=== PATIENT | male | born 1990 | race Caucasian/White ===

== ENCOUNTER 2018-06-05 08:32 | Emergency (ER) | payer OTHER, SELFPAY ==
[2018-06-05 08:57] VITALS: BP 113/75; PULSE 61; RESP 18; TEMP 37; O2SAT 98
--- NOTE | 2018-06-05 09:37 | W.ED.GENAD ---
Discharge Plan Disposition Patient Disposition: HOME Discharge Details Chief Complaint: RespSymp Clinical Impression: Bronchitis, Smoker Primary Care Provider: NONE,NONE ED Provider: Harsha Orozco Home Meds and New Rx's Prescriptions: New azithromycin 250 mg tablet See Label Instructions .ROUTE .COMPLEX Qty: 6 RF: 0 Discharge Instructions Instructions: How to Stop Smoking (ED), Cigarette Smoking and Your Health (GEN), Acute Bronchitis (ED) Additional Instructions: Please stop smoking. Take antibiotic as prescribed. Please contact your primary care physician to arrange follow-up. Return to the ER for any worsening or new concerning symptoms. Stand Alone Forms: Work Release Medical Decision Making 28-year-old male here with persistent cough over the past 3 weeks intimately productive of brown sputum. Saturating well no respiratory distress with clear lung sounds on exam. Patient is a smoker. Patient requesting work note for last night. I do think would be beneficial he takes today and tomorrow off to rest and allow for antibiotics to have an effect. Plan to treat for possible bacterial bronchitis with azithromycin. >6min spent discussing smoking cessation. Patient is motivated. Patient was advised to follow-up with primary care physician. Usual and customary discharge instructions were provided. HPI General Mode of arrival: ambulatory. Date/Time Provider Initiated Documentation: 06/05/18 09:29. Limitations to Documentation: no limitations. Information obtained by: patient. HPI Narrative: 28-year-old male here with chief complaint of cough. Patient notes intermittently productive cough for the past 3 weeks. Cough is persistent. When it is productive he has some brown sputum. Is some mild associated shortness of breath. No chest pain. No swelling. No calf pain or tenderness. No fevers. No rash. Patient does smoke and is trying to quit. He has reduced his smoking habits significantly. Related Data Home Medications Medication Instructions Recorded Confirmed azithromycin See Label Instructions .ROUTE 06/05/18 .COMPLEX #6 tab Previous Rx's Medication Instructions Recorded azithromycin See Label Instructions .ROUTE 06/05/18 .COMPLEX #6 tab Allergies Allergy/AdvReac Type Severity Reaction Status Date / Time codeine Allergy Unverified 11/27/17 07:43 General Stated Complaint: RespSymp QUIRINO: 4 Review of Systems Review of Systems All systems reviewed & are unremarkable except as noted in HPI and below ENT Reports otalgia (left) Cardiovascular Reports dyspnea Respiratory Reports cough, Reports dyspnea and Denies wheezing Gastrointestinal Denies abdominal pain Allergic/Immunologic Denies wheezing [facility] Social History Smoking/Tobacco Use Status: Current every day Exam Const General: cooperative and no acute distress HENMT Head: normocephalic and atraumatic Ears: external ears normal, TM normal on the left, EAC's normal and no periauricular adenopathy Mouth: moist mucous membranes Eyes Conjunctivae: normal conjunctivae Sclera: normal sclerae EOM: EOM intact bilaterally Neck Neck: trachea midline and supple Resp Auscultation: clear to auscultation bilaterally, no rales, no rhonchi and no wheezes Cardio Jugular venous pressure: no JVD Rate: regular rate and not tachycardic Rhythm: regular rhythm GI Palpation: soft, not firm, no guarding, no masses, not rigid and nontender Skin General skin exam: no rashes or lesions noted Neuro General: alert, awake, oriented x3 and tone normal Extrem General: no edema Psych Appearance: grossly normal Mental Status: mental status grossly normal Speech and Movement: speech and movement normal Course Vital Signs Temperature 37.0 C 06/05/18 08:57 Pulse 61 06/05/18 08:57 Respiratory Rate 18 06/05/18 08:57 Blood Pressure 113/75 06/05/18 08:57 Pulse Oximetry 98 06/05/18 08:57 Temperature 37.0 C 06/05/18 08:57 Temperature Source Temporal Artery Scan 06/05/18 08:57 Pulse 61 06/05/18 08:57 Respiratory Rate 18 06/05/18 08:57 Respiratory Effort 06/05/18 09:00 Blood Pressure 113/75 06/05/18 08:57 Blood Pressure Position Sitting 06/05/18 08:57 Pulse Oximetry 98 06/05/18 08:57 Oxygen Delivery Method Room Air 06/05/18 08:57 Oxygen Flow Rate 0 06/05/18 08:57 Pain Level 5 06/05/18 08:57
--- NOTE | 2018-06-05 09:41 | ED.GENADUL_ITS ---
Discharge Plan Disposition Patient Disposition: HOME Discharge Details Chief Complaint: RespSymp Clinical Impression: Bronchitis, Smoker Primary Care Provider: NONE,NONE ED Provider: Harsha Orozco Home Meds and New Rx's Prescriptions: New azithromycin 250 mg tablet See Label Instructions .ROUTE .COMPLEX Qty: 6 RF: 0 Discharge Instructions Instructions: How to Stop Smoking (ED), Cigarette Smoking and Your Health (GEN) , Acute Bronchitis (ED) Additional Instructions: Please stop smoking. Take antibiotic as prescribed. Please contact your primary care physician to arrange follow-up. Return to the ER for any worsening or new concerning symptoms. Stand Alone Forms: Work Release Medical Decision Making 28-year-old male here with persistent cough over the past 3 weeks intimately productive of brown sputum. Saturating well no respiratory distress with clear lung sounds on exam. Patient is a smoker. Patient requesting work note for last night. I do think would be beneficial he takes today and tomorrow off to rest and allow for antibiotics to have an effect. Plan to treat for possible bacterial bronchitis with azithromycin. >6min spent discussing smoking cessation. Patient is motivated. Patient was advised to follow-up with primary care physician. Usual and customary discharge instructions were provided. HPI General Mode of arrival: ambulatory . Date/Time Provider Initiated Documentation: 06/05/18 09:29 . Limitations to Documentation: no limitations . Information obtained by: patient . HPI Narrative: 28-year-old male here with chief complaint of cough. Patient notes intermittently productive cough for the past 3 weeks. Cough is persistent. When it is productive he has some brown sputum. Is some mild associated shortness of breath. No chest pain. No swelling. No calf pain or tenderness. No fevers. No rash. Patient does smoke and is trying to quit. He has reduced his smoking habits significantly. Related Data Home Medications Medication Instructions Recorded Confirmed azithromycin See Label Instructions .ROUTE 06/05/18 .COMPLEX #6 tab Previous Rx's Medication Instructions Recorded azithromycin See Label Instructions .ROUTE 06/05/18 .COMPLEX #6 tab Allergies Allergy/AdvReac Type Severity Reaction Status Date / Time codeine Allergy Unverified 11/27/17 07:43 General Stated Complaint: RespSymp QUIRINO: 4 Review of Systems Review of Systems All systems reviewed & are unremarkable except as noted in HPI and below ENT Reports otalgia (left) Cardiovascular Reports dyspnea Respiratory Reports cough, Reports dyspnea and Denies wheezing Gastrointestinal Denies abdominal pain Allergic/Immunologic Denies wheezing [facility] Social History Smoking/Tobacco Use Status: Current every day Exam Const General: cooperative and no acute distress HENMT Head: normocephalic and atraumatic Ears: external ears normal, TM normal on the left, EAC's normal and no periauricular adenopathy Mouth: moist mucous membranes Eyes Conjunctivae: normal conjunctivae Sclera: normal sclerae EOM: EOM intact bilaterally Neck Neck: trachea midline and supple Resp Auscultation: clear to auscultation bilaterally, no rales, no rhonchi and no wheezes Cardio Jugular venous pressure: no JVD Rate: regular rate and not tachycardic Rhythm: regular rhythm GI Palpation: soft, not firm, no guarding, no masses, not rigid and nontender Skin General skin exam: no rashes or lesions noted Neuro General: alert, awake, oriented x3 and tone normal Extrem General: no edema Psych Appearance: grossly normal Mental Status: mental status grossly normal Speech and Movement: speech and movement normal Course Vital Signs Temperature 37.0 C 06/05/18 08:57 Pulse 61 06/05/18 08:57 Respiratory Rate 18 06/05/18 08:57 Blood Pressure 113/75 06/05/18 08:57 Pulse Oximetry 98 06/05/18 08:57 Temperature 37.0 C 06/05/18 08:57 Temperature Source Temporal Artery Scan 06/05/18 08:57 Pulse 61 06/05/18 08:57 Respiratory Rate 18 06/05/18 08:57 Respiratory Effort 06/05/18 09:00 Blood Pressure 113/75 06/05/18 08:57 Blood Pressure Position Sitting 06/05/18 08:57 Pulse Oximetry 98 06/05/18 08:57 Oxygen Delivery Method Room Air 06/05/18 08:57 Oxygen Flow Rate 0 06/05/18 08:57 Pain Level 5 06/05/18 08:57
[2018-06-05 09:50] VITALS: BP 130/80; PULSE 88; RESP 18; TEMP 36.8; O2SAT 99
== END 2018-06-05 09:51 | disposition home or self-care (01) ==
PROVIDERS: Emergency Provider Student in an Organized Health Care Education/Training Program
DX: J18.9 Pneumonia, unspecified organism (principal); F17.210 Nicotine dependence, cigarettes, uncomplicated
CPT/HCPCS: 99283; 99406

== ENCOUNTER 2019-02-08 21:35 | Emergency (ER) | payer SELFPAY ==
[2019-02-08 21:39] VITALS: BP 137/72; PULSE 72; RESP 16; TEMP 36.7; O2SAT 97
--- NOTE | 2019-02-08 21:54 | W.ED.GENAD ---
Discharge Plan Disposition Patient Disposition: HOME Condition: Stable Discharge Details Chief Complaint: GenMedical Clinical Impression: Epididymitis Primary Care Provider: None,None ED Provider: Benigno Berry Home Meds and New Rx's Prescriptions: New levofloxacin 500 mg tablet 500 mg PO DAILY Qty: 9 RF: 0 Discharge Instructions Instructions: Epididymitis (ED) Additional Instructions: follow up with urology in the next 1-2 weeks, you should have a call with an appointment time if you have severe worsening pain or persistent vomit return to the emergency department you can take 1000mg tylenol and 600mg ibuprofen every 6 hours for pain as needed Stand Alone Forms: Work Release Referrals: Mike Saldana MD [ [facility] STAFF PHYSICIAN] - Medical Decision Making 29 yo male who states he has a hx of epididymitis in the past (about 5 years ago while in [place]) who comes in with slowly worsening left testicle discomfort. Denies fevers, has had some burning with urination. He denies sexual activity with new females and is declining any std testing at this time. He has no swelling of the testicle on exam, carrillo lie, pain only over epidiymis, no pain in testicle, normal cremasteric reflex. Exam consistent with epididymitis. no findings to suggest torsion at this time. Will have him f/u with urology and also return precautions given Differential Diagnosis epididymitis, uti, orchitis HPI General Mode of arrival: ambulatory. Date/Time Provider Initiated Documentation: 02/08/19 21:42. Limitations to Documentation: no limitations. Information obtained by: patient. History of Present Illness 29 year old M presents to the emergency department with the chief complaint of left testicle pain, described as moderate, Quality is described as aching, Patient started experiencing this day(s) (2) and it has been constant. No relieving factors improve symptom(s), No exacerbating factors reported . Patient did receive the following treatments prior to arrival, none Related Data Home Medications Medication Instructions Recorded Confirmed levofloxacin 500 mg PO DAILY #9 tab 02/08/19 Previous Rx's Medication Instructions Recorded levofloxacin 500 mg PO DAILY #9 tab 02/08/19 Allergies Allergy/AdvReac Type Severity Reaction Status Date / Time codeine Allergy Unverified 02/08/19 21:42 General Stated Complaint: GenMedical QUIRINO: 3 Review of Systems Review of Systems All systems reviewed & are unremarkable except as noted in HPI and below Constitutional Denies chills, Denies fever(s) and Denies weakness Cardiovascular Denies chest pain and Denies dyspnea Respiratory Denies cough and Denies dyspnea Gastrointestinal Denies abdominal pain Genitourinary Denies dysuria Neurologic Denies weakness [facility] Social History Smoking/Tobacco Use Status: Current every day Tobacco Type: cigarettes Smoking cigarettes per day: 15 Alcohol Intake: current Alcohol Intake frequency: a few times a week Drug use: Occasionally Substance use type: marijuana Do you feel safe at home: Yes Do you feel safe in your relationship?: Yes Course Vital Signs Temperature 36.7 C 02/08/19 21:39 Pulse 72 02/08/19 21:39 Respiratory Rate 16 02/08/19 21:39 Blood Pressure 137/72 02/08/19 21:39 Pulse Oximetry 97 02/08/19 21:39 Temperature 36.7 C 02/08/19 21:39 Temperature Source Temporal Artery Scan 02/08/19 21:39 Pulse 72 02/08/19 21:39 Respiratory Rate 16 02/08/19 21:39 Respiratory Effort 02/08/19 21:39 Blood Pressure 137/72 02/08/19 21:39 Blood Pressure Position Sitting 02/08/19 21:39 Pulse Oximetry 97 02/08/19 21:39 Oxygen Delivery Method Room Air 02/08/19 21:39 Oxygen Flow Rate 0 02/08/19 21:39 Pain Level 6 02/08/19 21:39 Lab/Test Results Lab/Test Results: 02/08/19 21:53 Urine - Clean Catch Urine Culture - Pending
[2019-02-08] MEDS: Ibuprofen 600 MG TAB PO (21:57)
--- NOTE | 2019-02-08 21:57 | ED.GENADUL_ITS ---
Discharge Plan Disposition Patient Disposition: HOME Condition: Stable Discharge Details Chief Complaint: GenMedical Clinical Impression: Epididymitis Primary Care Provider: None,None ED Provider: Benigno Berry Home Meds and New Rx's Prescriptions: New levofloxacin 500 mg tablet 500 mg PO DAILY Qty: 9 RF: 0 Discharge Instructions Instructions: Epididymitis (ED) Additional Instructions: follow up with urology in the next 1-2 weeks, you should have a call with an appointment time if you have severe worsening pain or persistent vomit return to the emergency department you can take 1000mg tylenol and 600mg ibuprofen every 6 hours for pain as needed Stand Alone Forms: Work Release Referrals: Mike Saldana MD [ [facility] STAFF PHYSICIAN] - Medical Decision Making 29 yo male who states he has a hx of epididymitis in the past (about 5 years ago while in [place]) who comes in with slowly worsening left testicle discomfort. Denies fevers, has had some burning with urination. He denies sexual activity with new females and is declining any std testing at this time. He has no swelling of the testicle on exam, carrillo lie, pain only over epidiymis, no pain in testicle, normal cremasteric reflex. Exam consistent with epididymitis. no findings to suggest torsion at this time. Will have him f/u with urology and also return precautions given Differential Diagnosis epididymitis, uti, orchitis HPI General Mode of arrival: ambulatory . Date/Time Provider Initiated Documentation: 02/08/19 21:42 . Limitations to Documentation: no limitations . Information obtained by: patient . History of Present Illness 29 year old M presents to the emergency department with the chief complaint of left testicle pain, described as moderate, Quality is described as aching, Patient started experiencing this day(s) (2) and it has been constant. No relieving factors improve symptom(s), No exacerbating factors reported . Patient did receive the following treatments prior to arrival, none Related Data Home Medications Medication Instructions Recorded Confirmed levofloxacin 500 mg PO DAILY #9 tab 02/08/19 Previous Rx's Medication Instructions Recorded levofloxacin 500 mg PO DAILY #9 tab 02/08/19 Allergies Allergy/AdvReac Type Severity Reaction Status Date / Time codeine Allergy Unverified 02/08/19 21:42 General Stated Complaint: GenMedical QUIRINO: 3 Review of Systems Review of Systems All systems reviewed & are unremarkable except as noted in HPI and below Constitutional Denies chills, Denies fever(s) and Denies weakness Cardiovascular Denies chest pain and Denies dyspnea Respiratory Denies cough and Denies dyspnea Gastrointestinal Denies abdominal pain Genitourinary Denies dysuria Neurologic Denies weakness [facility] Social History Smoking/Tobacco Use Status: Current every day Tobacco Type: cigarettes Smoking cigarettes per day: 15 Alcohol Intake: current Alcohol Intake frequency: a few times a week Drug use: Occasionally Substance use type: marijuana Do you feel safe at home: Yes Do you feel safe in your relationship?: Yes Course Vital Signs Temperature 36.7 C 02/08/19 21:39 Pulse 72 02/08/19 21:39 Respiratory Rate 16 02/08/19 21:39 Blood Pressure 137/72 02/08/19 21:39 Pulse Oximetry 97 02/08/19 21:39 Temperature 36.7 C 02/08/19 21:39 Temperature Source Temporal Artery Scan 02/08/19 21:39 Pulse 72 02/08/19 21:39 Respiratory Rate 16 02/08/19 21:39 Respiratory Effort 02/08/19 21:39 Blood Pressure 137/72 02/08/19 21:39 Blood Pressure Position Sitting 02/08/19 21:39 Pulse Oximetry 97 02/08/19 21:39 Oxygen Delivery Method Room Air 02/08/19 21:39 Oxygen Flow Rate 0 02/08/19 21:39 Pain Level 6 02/08/19 21:39 Lab/Test Results Lab/Test Results: 02/08/19 21:53 Urine - Clean Catch Urine Culture - Pending
[2019-02-08] MEDS: levoFLOXacin 500 MG TAB PO (21:58)
[2019-02-08 22:05] LABS: Bilirubin Negative (Negative); Blood Negative (Negative); Clarity Clear (Clear); Glucose Negative (Negative); Ketones Negative (Negative); Leukocyte Esterase Negative (Negative); Nitrite Negative (Negative); Specific Gravity 1.025 (1.005-1.025)
== END 2019-02-08 22:03 | disposition home or self-care (01) ==
PROVIDERS: Emergency Provider Emergency Medicine
DX: N45.1 Epididymitis (principal)
CPT/HCPCS: 87077; 99283; 81003; 87086; 99281

== ENCOUNTER 2019-03-29 22:09 | Emergency (ER) | payer SELFPAY ==
[2019-03-29 22:11] VITALS: BP 133/77; PULSE 63; RESP 18; TEMP 36.8; O2SAT 99
--- NOTE | 2019-03-29 22:13 | ED.GENADUL_ITS ---
Discharge Plan Disposition Patient Disposition: HOME Condition: Stable Discharge Details Chief Complaint: EyeProblem Clinical Impression: Abrasion of sclera of left eye, Corneal rust ring of left eye Primary Care Provider: None,None ED Provider: Angeles Scott Home Meds and New Rx's Prescriptions: Continued acetaminophen [Tylenol] 325 mg Tablet 650 mg PO PRN PRNRF: 0 ibuprofen 200 mg Tablet 400 mg PO Q6H PRNRF: 0 Discharge Instructions Instructions: Corneal Abrasion (ED) Additional Instructions: You have an abrasion noted on your sclera (which is the white part of your eye) under your lower eyelid. Use the erythromycin ointment in your left eye 4 times daily for the next 5 days. You were also noted to have a rust ring on the cornea which is the clear front part of your eye which may be due to an embedded foreign body. Call [facility] in [facility] at [phone] tomorrow morning to schedule a follow-up appointment for reevaluation tomorrow. Return immediately to the emergency department if you develop any worsening or concerning symptoms. Stand Alone Forms: Work Release Discharge Data Discharge Date/Time-TO BE ENTERED AT DEPARTURE: 03/29/19 22:59 Discharge Physician: Angeles Scott Medical Decision Making 29-year-old male presents with left eye irritation, foreign body sensation and blurry vision for the past few weeks after possible injury with foreign body at work including metal, steel or dirt. Right eye 20/20, left eye 20/30. Unsure of tetanus status. There is a scleral abrasion noted around 6:00 of left eye, and a corneal rust ring without obvious foreign body noted between 9 and 10:00. Suspect due to the injury occurring a few weeks ago, there may be a deeply embedded foreign body. Exam was done with fluorescein staining, Joseph lamp and slit lamp exam. There is no obvious foreign body with upper and lower eyelid eversion. Boostrix given. Patient was given erythromycin ointment here as well as tube for home. He was advised to call [facility] tomorrow morning for further evaluation and possible intervention. My note will be faxed to [facility] in the a.m. for evaluation tomorrow. HPI General Date/Time Provider Initiated Documentation: 03/29/19 22:12 . Limitations to Documentation: no limitations . Information obtained by: patient . HPI Narrative: Patient is a 29-year-old male presents with left eye irritation, foreign body sensation and blurry vision for the past few weeks after a possible eye injury at work. 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 He states he was at work a few weeks ago where he was wearing side protective glasses and felt like he got something in his eye. He states he is stubborn and did not seek any medical treatment at that time. He presents tonight due to pe rsistent irritation and foreign body sensation. He feels like there is something in the lower part of his eye that continually rubs from his lower eyelid. He is unsure of his tetanus status. He does not wear contacts. Related Data Home Medications Medication Instructions Recorded Confirmed acetaminophen [Tylenol] 650 mg PO PRN PRN 03/29/19 03/29/19 ibuprofen 400 mg PO Q6H PRN 03/29/19 03/29/19 Allergies Allergy/AdvReac Type Severity Reaction Status Date / Time codeine Allergy Unverified 03/29/19 22:13 General Stated Complaint: EyeProblem QUIRINO: 4 Review of Systems Review of Systems All systems reviewed & are unremarkable except as noted in HPI and below Constitutional Reports as per HPI, Denies chills and Denies fever(s) Eyes Denies blurry vision ENT Denies dizziness, Denies sore throat and Denies throat swelling Cardiovascular Denies chest pain and Denies dyspnea Respiratory Denies cough and Denies dyspnea Gastrointestinal Denies abdominal pain, Denies diarrhea and Denies vomiting Genitourinary Denies hematuria and Denies dysuria Musculoskeletal Denies back pain and Denies numbness Integumentary/Breasts Denies lesions and Denies rash Neurologic Denies dizziness, Denies focal weakness and Denies numbness Allergic/Immunologic Denies throat swelling PFS Medical History No significant past medical history (Acute) Surgical History History of appendectomy (Chronic) History of tonsillectomy and adenoidectomy (Acute) Social History Smoking/Tobacco Use Status: Current every day Tobacco Type: cigarettes Years smoked: 15 Alcohol Intake: current Alcohol Intake frequency: a few times a week Drug use: Daily Substance use type: marijuana Do you feel safe at home: Yes Do you feel safe in your relationship?: Yes Exam Const General: cooperative, healthy appearing and no acute distress HENMT Head: normal to inspection Ears: hearing grossly normal bilaterally and external ears normal Mouth: oral mucosae normal Eyes General: appearance normal, both eyes and all related structures Periorbital: periorbital findings normal Eyelids: eyelids normal Pupils: PERRL EOM: EOM intact bilaterally Other: Rust ring noted between 9 and 10:00 but no obvious superficial foreign body noted but there does appear to be a brown speck within the center of the rust ring consistent with possibly deeper embedded foreign body. Scleral abrasion noted at 6 o'clock. No other obvious foreign body noted with upper and lower eyelid eversion. Exam done with fluorescein staining, Joseph lamp and slit lamp exam. Neck Neck: normal visual inspection Resp Effort & Inspection: normal respiratory effort and able to speak in complete sentences Cardio Rate: regular rate Skin General skin exam: no rashes or lesions noted Neuro General: alert, awake and oriented x3 Motor: muscle tone normal throughout Extrem General: normal to inspection and full ROM Psych Appearance: grossly normal Affect: normal affect Course Vital Signs Temperature 98.2 F 03/29/19 22:11 Pulse 63 03/29/19 22:11 Respiratory Rate 18 03/29/19 22:11 Blood Pressure 133/77 03/29/19 22:11 Pulse Oximetry 99 03/29/19 22:11 Temperature 98.2 F 03/29/19 22:11 Pulse 63 03/29/19 22:11 Respiratory Rate 18 03/29/19 22:11 Blood Pressure 133/77 03/29/19 22:11 Blood Pressure Position Sitting 03/29/19 22:11 Pulse Oximetry 99 03/29/19 22:11 Oxygen Delivery Method Room Air 03/29/19 22:11 Oxygen Flow Rate 0 03/29/19 22:11 Pain Level 6 03/29/19 22:11
[2019-03-29] MEDS: Tetracaine 0.5% 4 ML BTL (22:20)
[2019-03-29] MEDS: Fluorescein STRIPS 100/BOX 1 MG (22:20)
[2019-03-29] MEDS: Erythromycin Ophth Oint 3.5 GM TUBE OU (22:46)
--- NOTE | 2019-03-29 23:10 | NUR.NOTE ---
Nursing Note: faxed note and referal to [facility]
== END 2019-03-29 22:59 | disposition home or self-care (01) ==
PROVIDERS: Emergency Provider Physician Assistant
DX: S05.02XA Injury of conjunctiva and corneal abrasion without foreign body, left eye, initial encounter (principal); T15.02XA Foreign body in cornea, left eye, initial encounter; Y99.0 Civilian activity done for income or pay
CPT/HCPCS: 90471; 99284; 99283

== ENCOUNTER 2019-06-16 11:29 | Emergency (ER) | payer SELFPAY ==
[2019-06-16 11:42] VITALS: BP 132/69; PULSE 64; RESP 18; TEMP 36.7; O2SAT 99
[2019-06-16 13:06] LABS: Mono Screening Negative (Negative)
--- NOTE | 2019-06-16 16:37 | ED.GENADUL_ITS ---
Discharge Plan Disposition Patient Disposition: HOME Condition: Good Discharge Details Chief Complaint: Sorethroat Clinical Impression: Hx of viral pharyngitis Primary Care Provider: Maria Esther Gamble ED Provider: Leslee Gamboa Home Meds and New Rx's Prescriptions: New benzonatate [Tessalon Perles] 100 mg capsule 100 mg PO TID PRN (Reason: cough) Qty: 10 RF: 0 albuterol sulfate [Proventil HFA] 90 mcg/actuation HFA aerosol inhaler 2 puff IH Q6H PRN (Reason: shortness of breath or wheezing) Qty: 8 RF: 0 Discharge Instructions Instructions: Pharyngitis (ED) Additional Instructions: Drink plenty of fluids. Increase vitamin C. Rest activities as tolerated. Use medication as prescribed as discussed Recheck with primary care doctor if not improving the next 3 to 5 days.@Return for any worsening, concerns or alarming symptoms sooner if needed Stand Alone Forms: Work Release Discharge Data Discharge Date/Time-TO BE ENTERED AT DEPARTURE: 06/16/19 14:20 Medical Decision Making 29-year-old patient presents for complaints of sore throat accompanied by a par tner who has been sick all week with similar symptoms. Patient ultimately has upper respiratory symptoms associated with sore throat specifically nasal congestion and cough. No measured fevers however does feel subjectively chilled and feverish. Mild body aches associated without bowel changes. No obvious voice change. On exam has pharyngeal erythema associated by cervical lymphadenopathy and clear breath sounds. No complaints of abdominal pain. Influenza, strep and mono testing ordered. All are negative today. Likely patient is experiencing a viral syndrome, conservative treatments were discussed. Patient agrees with plan of care. The patient was stable and requested discharge. Prior to discharge, my usual and customary return precautions were reviewed with the patient - this included follow-up instructions and reasons to return to the Emergency Department if conditions worsens, does not improve as expected, or other new concerns arise. HPI General Date/Time Provider Initiated Documentation: 06/16/19 11:51 . HPI Narrative: This is a 29-year-old patient presents for complaints of sore throat for the last 4 days. Patient reports mild nasal congestion and cough. Patient admits to being a smoker. Reports cough is persistent with mild production. Denies m easured fever however does report subjective fevers. Mild chills. Patient's partner has been ill with very similar symptoms of sore throat throughout the week. Patient denies nausea, vomiting or diarrhea. No significant change in the bowels. Patient denies difficulty breathing or shortness of breath or wheezing. Patient denies voice change or trismus Related Data Home Medications Medication Instructions Recorded Confirmed albuterol sulfate [Proventil HFA] 2 puff IH Q6H PRN #8 gm 06/16/19 benzonatate [Tessalon Perles] 100 mg PO TID PRN #10 cap 06/16/19 Previous Rx's Medication Instructions Recorded albuterol sulfate [Proventil HFA] 2 puff IH Q6H PRN #8 gm 06/16/19 benzonatate [Tessalon Perles] 100 mg PO TID PRN #10 cap 06/16/19 Allergies Allergy/AdvReac Type Severity Reaction Status Date / Time codeine Allergy Unverified 06/16/19 11:47 General Stated Complaint: Sorethroat QUIRINO: 4 Review of Systems All systems reviewed & are unremarkable except as noted in HPI and below Constitutional Constitutional: Reports chills, Denies fatigue, Reports fever(s), Denies headache(s) and Denies malaise ENT Ears, Nose, Mouth, and Throat: Denies otalgia, Denies headache(s), Denies mouth pain, Reports nasal discharge, Reports post nasal drip and Reports sore throat Cardiovascular Cardiovascular: Denies chest pain Respiratory Respiratory: Reports cough and Denies pain on inspiration Gastrointestinal Gastrointestinal: Denies diarrhea, Denies nausea and Denies vomiting Neurologic Neurologic: Denies headache(s) Endocrine Endocrine: Denies fatigue [facility], LAT[facility] Medical History No significant past medical history (Acute) Surgical History History of appendectomy (Chronic) History of tonsillectomy and adenoidectomy (Acute) Social History Smoking/Tobacco Use Status: Current every day Tobacco Type: cigarettes Years smoked: 15 Alcohol Intake: current Alcohol Intake frequency: a few times a week Drug use: Daily Substance use type: marijuana Do you feel safe at home: Yes Do you feel safe in your relationship?: Yes Exam Narrative Exam Narrative: CONST: Healthy appearing patient, in no acute distress. Well hydrated. Alert and alert. HENMT: Head nomocephalic, normal to inspection. Atraumatic. Hearing grossly normal. External ear canal no erythema or swelling. TM normal bilaterally. Nose normal to inspection. No rhinnorhea. Normal facial exam. Oral mucosa normal. Tounge normal. Dentition normal. Erythema posterior oropharynx. Uvula midline. EYES: General normal appearance. Alignment normal. Eyelids normal. Conjunctiva normal. Sclera normal. PERRL. NECK: Normal visual inspection. FROM. Cervical lymphadenopathy present. Trachea midline. No Midline tenderness. CHEST: Normal insepection of the chest. RESP: Normal respiratory effort. Speaking full sentences. No cough. No wheezing. No retractions. Clear to auscaltation. Breath sound equal and present bilaterally. CARDIO: No JVD. Normal PMI. Regular Rate. Regular Rhythm. Normal peripheral pulses. Course Vital Signs Vital signs: Vital Signs Temperature 36.7 C 06/16/19 11:42 Pulse 64 06/16/19 11:42 Respiratory Rate 18 06/16/19 11:42 Blood Pressure 132/69 06/16/19 11:42 Pulse Oximetry 99 06/16/19 11:42 Temperature 36.7 C 06/16/19 11:42 Temperature Source Skin 06/16/19 11:42 Pulse 64 06/16/19 11:42 Respiratory Rate 18 06/16/19 11:42 Respiratory Effort 06/16/19 11:47 Blood Pressure 132/69 06/16/19 11:42 Blood Pressure Position Sitting 06/16/19 11:42 Pulse Oximetry 99 06/16/19 11:42 Oxygen Delivery Method Room Air 06/16/19 11:42 Oxygen Flow Rate 0 06/16/19 11:42 Pain Level 7 06/16/19 14:05 Lab/Test Results Lab/Test Results: 06/16/19 11:45 Nasopharynx Influenza Types A,B Antigen - Final 06/16/19 11:50 Pharynx Streptococcus Screen (NOHELIA) - Pending Laboratory Tests Range/Units 06/16/19 12:49 Monoscreen (Negative) Negative POC Strep Test-KARTIK(Rapid) Start: 06/16/19 11:50 Freq: Status: Discharge Protocol: Document 06/16/19 12:02 AW (Rec: 06/16/19 12:02 AW [id number]) Strep test-KARTIK(Rapid)-POC POC-Strep test-KARTIK (Rapid) Negative POC-Strep test-KARTIK (Rapid) Negative
== END 2019-06-16 14:20 | disposition home or self-care (01) ==
PROVIDERS: Emergency Provider Physician Assistant; PCP Physician Assistant Medical
DX: J02.9 Acute pharyngitis, unspecified (principal); R05 Cough; M79.10 Myalgia, unspecified site
CPT/HCPCS: 36415; 87449; 87880; 99282; 86308; 87081

== ENCOUNTER 2023-03-12 05:15 | Emergency (ER) | payer MEDICAID, SELFPAY ==
--- NOTE | 2023-03-12 05:15 | DI.RAD_ITS ---
Exam(s) XR FOOT LT COMPLETE EXAM: XR FOOT LT COMPLETE CLINICAL HISTORY: Dropped a large piece of asphalt on it, bruised. TECHNIQUE: 2D digital imaging was performed. Three views. COMPARISON: No exams were available for comparison FINDINGS: BONES: No acute fracture is present. No bony destructive lesion is seen. JOINTS: No dislocation present. SOFT TISSUE: Normal. IMPRESSION: Unremarkable radiographs of the left foot. DATA REPOSITORY: RADIATION DOSE DELIVERED:
[2023-03-12 05:18] VITALS: BP 137/81; PULSE 72; RESP 19; O2SAT 98
--- NOTE | 2023-03-12 05:53 | ED.GENADUL_ITS ---
Discharge Plan Disposition Patient Disposition: Home Condition: Improving Discharge Details Clinical Impression: Contusion of foot Primary Care Provider: Maria Esther Gamble ED Provider: Baltazar Wood Instructions Instructions: Foot Contusion (ED) Stand Alone Forms: Work Release Discharge Data Discharge Date/Time-TO BE ENTERED AT DEPARTURE: 03/12/23 06:26 Discharge Physician: Baltazar Wood Medical Decision Making Patient with left foot contusion who had an x-ray that was reviewed by me and read by the radiologist has no fracture. Differential diagnosis includes fracture or contusion at this time is a contusion the patient will be discharged home with NSAIDs crutches and follow-up Medical Records Medical records reviewed: Yes I reviewed the patient's medical records. HPI General Date/Time Provider Initiated Documentation: 03/12/23 05:53 . HPI Narrative: Patient presents to the emergency department after he dropped a object on his left foot complaining of tenderness to the foot Related Data Allergies Allergy/AdvReac Type Severity Reaction Status Date / Time codeine Allergy Unverified 06/16/19 11:47 General Stated Complaint: Orthopedic QUIRINO: 4 Review of Systems Narrative: Review of Systems: Constitutional: No fevers, chills, sweats Eye: No recent visual problems ENT: No ear pain, nasal congestion, sore throat Respiratory: No shortness of breath, cough Cardiovascular: No Chest pain, palpitations, syncope Gastrointestinal: No nausea, vomiting, diarrhea Genitourinary: No hematuria Abisai/Lymph: Negative for bruising tendency, swollen lymph glands Endocrine: Negative for excessive thirst, excessive hunger Musculoskeletal: No back pain, neck pain, joint pain, muscle pain, decreased range of motion Integumentary: No rash, pruritus, abrasions Neurologic: Alert & oriented X 4 Psychiatric: No anxiety, depression PFSH All Active Problems Contusion of foot (Acute) Medical History No significant past medical history Surgical History History of appendectomy History of tonsillectomy and adenoidectomy Social History Smoking/Tobacco Use Status: Current every day Tobacco Type: cigarettes Years smoked: 15 Smoking risk assessment performed?: Yes Alcohol Intake: former Drug use: Daily Substance use type: marijuana Housing: apartment Do you feel safe at home: Yes Do you feel safe in your relationship?: Yes Exam Narrative Exam Narrative: Exam; vitals signs as reported above normal Constitutional; In no acute distress, afebrile General: cooperative, healthy appearing, comfortable and no acute distress HEENT: Head: normal to inspection, no palpable skull fracture and normocephalic atraumatic Eyes: : appearance normal, both eyes and all related structures EOM intact bilaterally Pupils: PERRL : conjunctiva normal Direct ophthalmoscopy: normal light reflex, normal conjunctiva, normal visual acuity Ears: Normal TM, normal external canal Neck no JVD, supple non tender Neck: normal visual inspection, full ROM and no lymphadenopathy Chest: normal inspection of the chest Respiratory : normal respiratory effort and able to speak in complete sentences no wheezing no rales Cardio Rate: regular rate, rhythm: regular rhythm normal heart sounds S1 and S2 no murmurs, gallops, or rubs GI : normal to inspection, normal bowel sounds, soft, non tender, non distended, no organomegaly Back/Spine/ no CVA tenderness Thoracic/Lumbar Spine: no tenderness or deformities Skin no rashes or lesions Neuro: patient alert and no meningeal signs, Cranial Nerves: CN's II-XI intact bilaterally, Cognition: normal cognition, Speech: speech normal, Gait: normal gait, Depp tendon reflexes normal 2+ muscle strength 5/5 bilaterally Extremities, no edema, full range of motion, normal strength tenderness to the lower dorsal aspect of the left foot Course Vital Signs Vital signs: Vital Signs Pulse 72 03/12/23 05:18 Respiratory Rate 03/12/23 05:18 Blood Pressure 137/81 03/12/23 05:18 Pulse Oximetry 98 03/12/23 05:18 Pulse 72 03/12/23 05:18 Respiratory Rate 19 03/12/23 05:18 Respiratory Effort Normal, Non-Labored 03/12/23 05:22 Blood Pressure 137/81 03/12/23 05:18 Blood Pressure Position Sitting 03/12/23 05:18 Pulse Oximetry 98 03/12/23 05:18 Oxygen Delivery Method Room Air 03/12/23 05:18 Oxygen Flow Rate 0 03/12/23 05:18 Pain Level 8 03/12/23 05:22
--- NOTE | 2023-03-12 05:53 | DI.VRAD_ITS ---
PROCEDURE INFORMATION: Exam: XR Left Foot Exam date and time: 03/12/2023 5:43 AM Age: 33 years old Clinical indication: Injury or trauma; Other: Asphalt fell on foot; Work related; Crushing; Left; Injury date: 03/11/23; Injury details: Dropped a large piece of asphalt on it, bruised, swollen TECHNIQUE: Imaging protocol: Radiologic exam of the left foot. Views: 3 or more views. COMPARISON: No relevant prior studies available. FINDINGS: Bones/joints: Normal. Soft tissues: Normal. IMPRESSION: No acute findings. Dictated and Authenticated by: Benigno Mccarthy MD. Ordering:NEY Ledesma MD
[2023-03-12 06:25] VITALS: BP 115/70; PULSE 67; RESP 16; O2SAT 98
== END 2023-03-12 06:26 | disposition home or self-care (01) ==
PROVIDERS: Emergency Provider Emergency Medicine Emergency Medical Services; PCP Physician Assistant Medical
DX: S90.32XA Contusion of left foot, initial encounter (principal); X58.XXXA Exposure to other specified factors, initial encounter
CPT/HCPCS: 99283; 73630

== ENCOUNTER 2025-03-21 13:38 | Emergency (ER) | payer MEDICAID, SELFPAY ==
[2025-03-21 13:46] VITALS: BP 133/84; PULSE 70; RESP 17; TEMP 36.8; O2SAT 98
[2025-03-21 13:51] VITALS: BP 133/84; PULSE 70; RESP 17; TEMP 36.8; O2SAT 98
--- NOTE | 2025-03-21 14:01 | ED.GENADUL_ITS ---
Discharge Plan Disposition Patient Disposition: Home Condition: Stable Discharge Details Clinical Impression: Nausea vomiting and diarrhea Primary Care Provider: Maria Esther Gamble ED Provider: Benigno Berry Home Meds and New Rx's Prescriptions: New ondansetron 4 mg tablet,disintegrating 4 mg PO Q8H PRN (Reason: nausea and vomiting) Qty: 30 0RF Discharge Instructions Additional Instructions: Your lab work did not show any concerning findings at this time. If you are not improving within 3 to 5 days follow-up with your primary care provider or express care. If you feel significantly more ill, have persistent vomiting despite nausea medication or severe abdominal pain return to the emergency department for patient. Stand Alone Forms: Work Release HPI General Mode of arrival: ambulatory . Date/Time Provider Initiated Documentation: 03/21/25 13:39 . Limitations to Documentation: no limitations . Information obtained by: patient . History of Present Illness 35 year old M presents to the emergency department with the chief complaint of n/v/d, described as moderate, Patient started experiencing this hour(s) (8) and it has been intermittent. No relieving factors improve symptom(s), No exacerbating factors reported . Patient notes denies chest pain and fever/chills. Patient did receive the following treatments prior to arrival, none Related Data Home Medications ?Medication ?Instructions ?Recorded ?Confirmed ondansetron 4 mg disintegrating 4 mg PO Q8H PRN nausea and 03/21/25 tablet vomiting #30 tabs Previous Rx's ?Medication ?Instructions ?Recorded ondansetron 4 mg disintegrating 4 mg PO Q8H PRN nausea and 03/21/25 tablet vomiting #30 tabs Allergies Allergy/AdvReac Type Severity Reaction Status Date / Time codeine Allergy Hives Unverified 03/21/25 13:51 General Stated Complaint: Nausea/Vomit/Diar QUIRINO: 3 Review of Systems All systems reviewed & are unremarkable except as noted in HPI and below Constitutional Constitutional: Denies chills, Denies fever(s) and Denies weakness Cardiovascular Cardiovascular: Denies chest pain and Denies dyspnea Respiratory Respiratory: Denies cough and Denies dyspnea Gastrointestinal Gastrointestinal: Denies abdominal pain, Reports diarrhea, Reports nausea and Reports vomiting Neurologic Neurologic: Denies weakness Exam Const General: no acute distress Orientation: alert HENMT Head: normal to inspection Ears: external ears normal General nose exam: external nose normal Mouth: moist mucous membranes Eyes General: appearance normal, both eyes and all related structures Neck Neck: normal visual inspection Resp Effort & Inspection: normal respiratory effort and able to speak in complete sentences Cardio Rate: regular rate GI Palpation: soft, not firm, no guarding and tender Skin General skin exam: no rashes or lesions noted Neuro General: patient alert and patient oriented x3 Extrem General: normal to inspection Psych Mental Status: mental status grossly normal Course Vital Signs Vital signs: Vital Signs Temperature 36.8 C 03/21/25 13:46 Pulse 70 03/21/25 13:46 Respiratory Rate 17 03/21/25 13:46 Blood Pressure 133/84 03/21/25 13:46 Pulse Oximetry 98 03/21/25 13:46 Temperature 36.8 C 03/21/25 13:51 Temperature Source Oral 03/21/25 13:51 Pulse 70 03/21/25 13:51 Respiratory Rate 17 03/21/25 13:51 Blood Pressure 133/84 03/21/25 13:51 Blood Pressure Position Sitting 03/21/25 13:51 Pulse Oximetry 98 03/21/25 13:51 Oxygen Delivery Method Room Air 03/21/25 13:51 Oxygen Flow Rate 0 03/21/25 13:46 Pain Level 4 03/21/25 13:46 Medical Decision Making 35-year-old male who denies any chronic problems comes in with chief complaint of nausea vomiting diarrhea starting this morning. He says he felt well yesterday denies any recent travel, antibiotic use or marijuana. He denies any severe abdominal pain, chest pain, difficulty breathing. He is well-appearing on exam. He has no abdominal tenderness on exam. I suspect illness or gastroenteritis, will check a CBC and CMP and treat his symptoms with IV fluids and Zofran and reassess. Patient feeling better, labs unremarkable. He still has no abdominal tenderness. Given reassuring workup I feel he stable for discharge and follow- up with his PCP, return precautions given. Differential Diagnosis Differential Diagnosis: gastroeneteritis, food illness [facility] All Active Problems (Updated 03/21/25 @ 14:52 by Benigno Berry MD) Nausea vomiting and diarrhea (Acute) Medical History (Updated 03/21/25 @ 14:52 by Benigno Berry MD) No significant past medical history Surgical History History of tonsillectomy and adenoidectomy History of appendectomy Social History Smoking/Tobacco Use Status: Current every day Tobacco Type: cigarettes Years smoked: 15 Smoking risk assessment performed?: Yes Alcohol Intake: former Drug use: Daily Substance use type: marijuana Housing: apartment Do you feel safe at home: Yes Do you feel safe in your relationship?: Yes
[2025-03-21 14:16] LABS: Abs Immature Grans 0.03 10^3/uL (0.0-0.06); HCT 44.5 % (40.0-50.0); HGB 14.9 g/dL (13.5-17.5); Immature Grans % 0.4 %; MCH 28.9 pg (27.0-33.0); MCHC 33.5 % (32.0-36.0); MCV 86 fL (80-95); MPV 9.2 fL (8.0-11.0); Platelet Count 368 10^3/uL (130-400); RBC 5.15 10^6/uL (4.36-5.78); RDW 13.3 % (11.8-14.1); RDW-SD 42.5 fL; WBC 8.54 10^3/uL (4.4-10.8)
[2025-03-21] MEDS: Normal Saline 1,000 ML 1000 ML IV (14:17)
[2025-03-21] MEDS: Ondansetron 4 MG/2 ML VIAL IVP (14:18)
[2025-03-21 14:31] LABS: Calcium 8.9 mg/dL (8.5-10.1); Glucose 111 mg/dL (74-106)
[2025-03-21 14:32] LABS: ALT 18 U/L (16-63); AST 18 U/L (15-37); Albumin 3.7 g/dL (3.4-5.0); Alkaline Phosphatase 51 U/L (46-116); Anion Gap 8.7 mmol/L (3-11); BUN 10 mg/dL (7-18); Bilirubin, Total 0.6 mg/dL (0.2-1.0); CO2 28.3 mmol/L (21.0-32.0); Chloride 105 mmol/L (98-107); Estimated GFR 113.51 (mL/min/1.73m2); Magnesium 1.9 mg/dL (1.8-2.4); Potassium 4.4 mmol/L (3.5-5.1); Sodium 142 mmol/L (136-145); Total Protein 7.7 g/dL (6.4-8.2)
== END 2025-03-21 15:02 | disposition home or self-care (01) ==
PROVIDERS: Emergency Provider Emergency Medicine; PCP Physician Assistant Medical
DX: R11.2 Nausea with vomiting, unspecified (principal); R19.7 Diarrhea, unspecified
CPT/HCPCS: 80053; 96361; 96374; 99284; 83735; 85025; 99283; J2405

== ENCOUNTER 2025-04-11 18:33 | Emergency (ER) | payer MEDICAID, SELFPAY ==
[2025-04-11 18:36] VITALS: BP 146/85; PULSE 69; RESP 18; TEMP 37.1; O2SAT 98
[2025-04-11 18:38] VITALS: BP 146/85; PULSE 69; RESP 18; TEMP 37.1; O2SAT 98
--- NOTE | 2025-04-11 19:04 | ED.GENADUL_ITS ---
Discharge Plan Disposition Patient Disposition: Home Condition: Stable Discharge Details Clinical Impression: Migraine syndrome Primary Care Provider: Maria Esther Gamble ED Provider: Leland Moore Home Meds and New Rx's Prescriptions: No Action ondansetron 4 mg tablet,disintegrating 4 mg PO Q8H PRN (Reason: nausea and vomiting) Qty: 30 0RF Discharge Instructions Instructions: Headache, Adult ED Additional Instructions: You were seen in the emergency department for your headache for the past 3 days, you state this is just a headache, we are going to perform a COVID/flu test which you can obtain from any pharmacy, you received migraine medications, I suggest you continue taking Tylenol and ibuprofen and stay well-hydrated. Please return for any emergent concerns. Stand Alone Forms: Work Release Referrals: Maria Esther Gamble [Primary Care Provider, Medicine] Discharge Data Discharge Date/Time-TO BE ENTERED AT DEPARTURE: 04/11/25 19:42 HPI General Date/Time Provider Initiated Documentation: 04/11/25 18:40 . HPI Narrative: 35 year-old male presents to ED today by POV/ambulating with a chief complaint of headache with onset 3 days. Quality described as generalized headache, no radiation to fever, neck stiffness, trauma, URI, severe body aches, abdominal pain, shortness of breath, chest pain. Severity is described as moderate. Palliating factors include nothing specific attempted. Provoking factors include nothing specific. Patient not anticoagulated. Related Data Home Medications ?Medication ?Instructions ?Recorded ?Confirmed ondansetron 4 mg disintegrating 4 mg PO Q8H PRN nausea and 03/21/25 04/11/25 tablet vomiting #30 tabs Previous Rx's ?Medication ?Instructions ?Recorded ondansetron 4 mg disintegrating 4 mg PO Q8H PRN nausea and 03/21/25 tablet vomiting #30 tabs Allergies Allergy/AdvReac Type Severity Reaction Status Date / Time codeine Allergy Hives Unverified 04/11/25 18:38 General Stated Complaint: Headache QUIRINO: 3 Review of Systems All systems reviewed & are unremarkable except as noted in HPI and below Exam Narrative Exam Narrative: GENERAL APPEARANCE: Well-nourished, non-toxic, awake and alert, atraumatic, no acute distress. SKIN: Warm, pink, dry, intact, without rashes/lesions/ulcerations. HEAD: Normocephalic, atraumatic, normal hair distribution for gender/age. EYES: Normal conjunctiva, no exudates on lids/lashes. ENT: Nares patent, no circumoral cyanosis, no facial swelling NECK: Supple, trachea midline, painless cervical ROM. LUNGS/CHEST: Non-labored respirations, normal A/P diameter, symmetrical expansion, no chest wall deformity HEART (CV/PV): No peripheral edema, no JVD. ABDOMEN: Soft, non-distended, no guarding. MSK: Normal ROM, no swelling/deformity to bilateral UEs or LEs, moving all extremities without weakness, no cyanosis, spine midline without tenderness, normal curvature. NEURO: Mental Status AAOx4 - alert to person, place, time, events No facial droop, no forehead involvement. Motor: No focal weakness - strength 5/5 in bilateral UEs and LEs, proximal and distal, symmetric. Sensory: sensation intact to light touch globally. Gait normal: patient ambulated without ataxia into ED room. PSYCH: euthymic, cooperative, pleasant, appropriate speech Course Vital Signs Vital signs: Vital Signs Temperature 37.1 C 04/11/25 18:36 Pulse 69 04/11/25 18:36 Respiratory Rate 18 04/11/25 18:36 Blood Pressure 146/85 H 04/11/25 18:36 Pulse Oximetry 98 04/11/25 18:36 Temperature 37.1 C 04/11/25 18:38 Pulse 69 04/11/25 18:38 Respiratory Rate 18 04/11/25 18:38 Blood Pressure 146/85 H 04/11/25 18:38 Pulse Oximetry 98 04/11/25 18:38 Medical Decision Making This dictation utilizes [id number] dictation software and may contain unedited grammatical errors. 35 year-old male presents to ED today by POV/ambulating with a chief complaint of headache with onset 3 days. Quality described as generalized headache, no radiation to fever, neck stiffness, trauma, URI, severe body aches, abdominal pain, shortness of breath, chest pain. Severity is described as moderate. Palliating factors include nothing specific attempted. Provoking factors include nothing specific. Patients' medical history: Negative, otherwise healthy. Family and social history: Noncontributory. Pertinent exam findings / vital signs include neuro intact, no nuchal rigidity, nontoxic and afebrile. Differential / pathologies of concern include migraine syndrome, headache, viral syndrome. Diagnostic studies of: - None, discussed with patient, trial of relief for headache syndrome prior to invasive laboratory studies, discussed Covid/Flu test- can take outpatient Interventions of: - 1 tab Fioricet, 650 mg p.o. Tylenol, 15 mg IVP ketorolac, 5 mg IVP Reglan, 25 mg IV Benadryl, 10 mg IV dexamethasone, 1 L IVF NS. ED Course/Assessment/Plan: 35-year-old male presents with headache syndrome, he has no concerns for nuchal rigidity or meningismus, nontoxic and afebrile with no severe URI symptoms, no distress, pain is somewhat relieved with headache medications, counseled him on continuing Tylenol and ibuprofen stay well-hydrated and returning for any severe increase in headache especially with fever, inability to range his neck or any other emergent concerns. Findings not consistent with meningismus, toxic presentation. Disposition of Migraine Syndrome. Patient verbalized understanding of the plan and return to ED criteria and engaged in shared decision making. Medical Records Medical records reviewed: Yes I reviewed the patient's medical records. PFSH All Active Problems (Updated 04/11/25 @ 19:40 by BERTA Hernandez) Migraine syndrome (Acute) Nausea vomiting and diarrhea (Acute) Medical History (Updated 04/11/25 @ 19:40 by BERTA Hernandez) No significant past medical history Surgical History History of tonsillectomy and adenoidectomy History of appendectomy Social History Smoking/Tobacco Use Status: Current every day Tobacco Type: e-cigarettes Smoking risk assessment performed?: Yes Alcohol Intake: former Drug use: Daily Substance use type: marijuana Housing: apartment Do you feel safe at home: Yes Do you feel safe in your relationship?: Yes
[2025-04-11] MEDS: Normal Saline 1,000 ML 1000 ML IV (19:20)
[2025-04-11] MEDS: Ketorolac 15 MG/ML VIAL IVP (19:21)
[2025-04-11] MEDS: Metoclopramide 10 MG/2 ML VIAL 5 MG IVP (19:22)
[2025-04-11] MEDS: diphenhydrAMINE 50 MG/ML VIAL 25 MG IVP (19:22)
[2025-04-11] MEDS: Dexamethasone 10 MG/ML VIAL IVP (19:24)
[2025-04-11] MEDS: Butalbital/Acetaminophen/Caffeine 50/325/40 TAB PO (19:25)
[2025-04-11] MEDS: Acetaminophen 325 MG TAB 650 MG PO (19:25)
== END 2025-04-11 19:42 | disposition home or self-care (01) ==
PROVIDERS: Emergency Provider Physician Assistant; PCP Physician Assistant Medical
DX: G43.909 Migraine, unspecified, not intractable, without status migrainosus (principal)
CPT/HCPCS: 99284; 99283; 96374; 96375; 96361; J1100; J1200; J1885; J2765

== ENCOUNTER 2025-06-02 09:28 | Emergency (ER) | payer SELFPAY ==
[2025-06-02 09:31] VITALS: BP 120/78; PULSE 66; RESP 14; TEMP 36.5; O2SAT 98
--- NOTE | 2025-06-02 09:49 | ED.GENADUL_ITS ---
Discharge Plan Disposition Patient Disposition: Home Condition: Stable Discharge Details Clinical Impression: Nausea Primary Care Provider: Maria Esther Gamble ED Provider: Harsha Orozco Home Meds and New Rx's Prescriptions: New ondansetron 4 mg tablet,disintegrating 4 mg PO Q8H PRN (Reason: nausea and vomiting) Qty: 10 0RF Discontinued ondansetron 4 mg tablet,disintegrating 4 mg PO Q8H PRN (Reason: nausea and vomiting) Qty: 30 0RF Discharge Instructions Instructions: Nausea and vomiting in adults Additional Instructions: Take nausea medicine as prescribed. Maintain a clear liquid diet today and tomorrow morning. Advance to bland soft foods like rice tomorrow afternoon as tolerated. Advance slowly thereafter as tolerated. Please follow-up with your primary care physician. Return to the emergency department immediately for any worsening or new concerning symptoms. Stand Alone Forms: Work Release Referrals: Maria Esther Gamble [Primary Care Provider, Medicine] Discharge Data Discharge Date/Time-TO BE ENTERED AT DEPARTURE: 06/02/25 10:12 HPI General Date/Time Provider Initiated Documentation: 06/02/25 09:43 . Limitations to Documentation: no limitations . Information obtained by: patient . HPI Narrative: HISTORY OF PRESENT ILLNESS This is a 35-year-old male presenting with nausea. He experienced an abrupt onset of nausea while driving to work today, a symptom he has encountered once before without a known cause. His health was normal yesterday, and he was able to complete his workday without any issues. He reports no significant medical history or use of medications. He also reports no chest pain, rash, swelling, shortness of breath, diarrhea, bloody stool, or abdominal pain. He does report a runny nose and has not vomited but has expectorated phlegm. He vapes but does not smoke cigarettes anymore. He resides with his , who is currently in good health. Related Data Home Medications Medication Instructions Recorded Confirmed ondansetron 4 mg disintegrating 4 mg PO Q8H PRN nausea and 06/02/25 tablet vomiting #10 tabs Previous Rx's Medication Instructions Recorded ondansetron 4 mg disintegrating 4 mg PO Q8H PRN nausea and 06/02/25 tablet vomiting #10 tabs Allergies Allergy/AdvReac Type Severity Reaction Status Date / Time codeine Allergy Hives Unverified 06/02/25 09:35 General Stated Complaint: Nausea/Vomit/Diar QUIRINO: 3 Review of Systems All systems reviewed & are unremarkable except as noted in HPI and below Gastrointestinal Gastrointestinal: Reports as per HPI Exam Const General: cooperative and no acute distress HENMT Mouth: moist mucous membranes Eyes Conjunctivae: normal conjunctivae Sclera: normal sclerae Neck Neck: trachea midline and supple Resp Auscultation: clear to auscultation bilaterally, no rales, no rhonchi and no wheezes Cardio Rate: regular rate and not tachycardic Rhythm: regular rhythm GI Palpation: soft, not firm, no guarding, no masses, not rigid and nontender Skin General skin exam: no rashes or lesions noted Neuro General: patient alert, patient awake and tone normal Extrem General: no edema Course Vital Signs Vital signs: Vital Signs Temperature 36.5 C 06/02/25 09:31 Pulse 66 06/02/25 09:31 Respiratory Rate 14 06/02/25 09:31 Blood Pressure 120/78 06/02/25 09:31 Pulse Oximetry 98 06/02/25 09:31 Temperature 36.5 C 06/02/25 09:31 Temperature Source Oral 06/02/25 09:31 Pulse 66 06/02/25 09:31 Respiratory Rate 14 06/02/25 09:31 Blood Pressure 120/78 06/02/25 09:31 Blood Pressure Position Sitting 06/02/25 09:31 Pulse Oximetry 98 06/02/25 09:31 Oxygen Delivery Method Room Air 06/02/25 09:31 Oxygen Flow Rate 0 06/02/25 09:31 Pain Level 0 06/02/25 09:31 Medical Decision Making ASSESSMENT AND PLAN Initial Assessment: 35-year-old male with nausea, possibly viral etiology. No significant medical history. No pain, no vomiting, no diarrhea. Abdominal exam benign. Afebrile. Patient is hemodynamically stable. Differential Diagnosis: - Viral infection - Gastroenteritis ED Course: - Vitals checked, normal. - Physical exam conducted. Abdominal exam benign. Patient well-hydrated. Hemodynamically stable. - Zofran administered. - Plan for discharge with outpatient follow-up with PCP. Usual and customary discharge instructions reviewed. Final Assessment: 35-year-old male with nausea, possibly viral etiology. No significant medical history. No pain, no vomiting, no diarrhea. Zofran administered, clear liquid diet recommended. Clinical Impression: - Nausea, likely gastroenteritis Disposition: - Discharge: Discharged with work note excusing from work today and tomorrow, expected return on Friday. Patient Education: Clear liquid diet, hand hygiene. This document was written with the assistance of RICH Hansen. The patient consented to its use. PFSH All Active Problems (Updated 06/02/25 @ 09:53 by Harsha Orozco MD) Nausea (Acute) Medical History (Updated 06/02/25 @ 09:53 by Harsha Orozco MD) No significant past medical history Surgical History History of tonsillectomy and adenoidectomy History of appendectomy Social History Smoking/Tobacco Use Status: Current every day Tobacco Type: e-cigarettes Smoking risk assessment performed?: Yes Alcohol Intake: former Drug use: Daily Substance use type: marijuana Housing: apartment Do you feel safe at home: Yes Do you feel safe in your relationship?: Yes
[2025-06-02] MEDS: Ondansetron O.D.T. 4 MG TABEF PO (10:08)
[2025-06-02 10:10] VITALS: BP 120/78; PULSE 66; RESP 14; TEMP 36.5; O2SAT 98
== END 2025-06-02 10:12 | disposition home or self-care (01) ==
PROVIDERS: Emergency Provider Student in an Organized Health Care Education/Training Program; PCP Physician Assistant Medical
DX: R11.0 Nausea (principal)
CPT/HCPCS: 99283 ×2